=== PATIENT | male | born 1980 ===

== ENCOUNTER 2020-10-02 23:54 | Emergency (ER) | payer OTHER ==
[~2020-10-02] VITALS: Ht 180.3 cm; Wt 81.6 kg
--- NOTE | 2020-10-02 23:58 | NUR ---
Pt ambulated to ER with c/o burning chestpain x 2 days, states he's been eating lots of spicy food yesterday. A/O x4, no SOB or labored breathing. Afebrile.
--- NOTE | 2020-10-03 00:05 | NUR ---
Mely Parra at bedside, MSE in progress.
[2020-10-03] MEDS ORDERED: OMEP20CA15 PO (00:10)
--- NOTE | 2020-10-03 00:22 | NUR ---
Patient discharged to home in stable condition. A/O x4, no SOB or labored breathing. Afebrile. Written and verbal after care instructions given. Patient verbalizes understanding of instructions. Stressed follow up or return to ER for worsening s/s. Steady gait.
[2020-10-03 00:24] VITALS: BP 116/64
== END 2020-10-03 00:24 | disposition home or self-care (01) ==
LOC: ER 23:55
DX: R12 Heartburn (principal); F17.210 Nicotine dependence, cigarettes, uncomplicated; Z87.19 Personal history of other diseases of the digestive system
CPT/HCPCS: A4663